=== PATIENT | male | born 1980 ===

== ENCOUNTER 2024-09-19 07:50 | Outpatient (RCR) | payer BC, SELFPAY | END 2024-09-19 23:59 | disposition home or self-care (01) | LOC: RPT 07:50 | DX: M53.3 Sacrococcygeal disorders, not elsewhere classified (principal); M54.51 Vertebrogenic low back pain; M25.551 Pain in right hip; Z73.6 Limitation of activities due to disability | CPT/HCPCS: 97010; 97110; 97112; 97140; 97162 ==

== ENCOUNTER 2024-10-20 17:24 | Outpatient (RCR) | payer BC, SELFPAY | END 2024-10-20 23:59 | disposition home or self-care (01) | LOC: RPT 17:24 | PROVIDERS: ATTENDING PHYSICIAN Family Medicine | DX: M53.3 Sacrococcygeal disorders, not elsewhere classified (principal); M54.51 Vertebrogenic low back pain; M25.551 Pain in right hip; Z73.6 Limitation of activities due to disability | CPT/HCPCS: 97010; 97110; 97112; 97140 ==

== ENCOUNTER 2024-11-14 08:55 | Outpatient (RCR) | payer BC, SELFPAY | END 2024-11-14 23:59 | disposition home or self-care (01) | LOC: RPT 08:55 | PROVIDERS: ATTENDING PHYSICIAN Family Medicine | DX: M53.3 Sacrococcygeal disorders, not elsewhere classified (principal); M54.51 Vertebrogenic low back pain; M25.551 Pain in right hip; Z73.6 Limitation of activities due to disability | CPT/HCPCS: 97010; 97110; 97112; 97140 ==

== ENCOUNTER 2025-01-12 16:05 | Outpatient (RCR) | payer BC, SELFPAY | END 2025-01-12 23:59 | disposition home or self-care (01) | LOC: RPT 16:05 | PROVIDERS: ATTENDING PHYSICIAN Family Medicine | DX: M53.3 Sacrococcygeal disorders, not elsewhere classified (principal); M54.51 Vertebrogenic low back pain; M25.551 Pain in right hip; Z73.6 Limitation of activities due to disability | CPT/HCPCS: 97110; 97112; 97140; 97530 ==

== ENCOUNTER 2025-01-20 06:41 | Outpatient (RCR) | payer BC, SELFPAY | END 2025-01-20 09:12 | disposition home or self-care (01) | LOC: RPT 06:41 | PROVIDERS: ATTENDING PHYSICIAN Family Medicine | DX: M53.3 Sacrococcygeal disorders, not elsewhere classified (principal); M54.51 Vertebrogenic low back pain; M25.551 Pain in right hip; Z73.6 Limitation of activities due to disability | CPT/HCPCS: 97110; 97112 ==